=== PATIENT | female | born 1970 | race Caucasian/White ===

== ENCOUNTER 2018-11-26 14:36 | Emergency (ER) ==
[~2018-11-26 14:36] MED LIST: Sterile Water Irrigation 250 ML BOT ONE
== END 2018-11-26 15:12 | disposition left against medical advice (07) ==
LOC: MADERS 14:36
DX: S11.91XA Laceration without foreign body of unspecified part of neck, initial encounter (principal); S60.413A Abrasion of left middle finger, initial encounter; V89.2XXA Person injured in unspecified motor-vehicle accident, traffic, initial encounter
CPT/HCPCS: 99283